=== PATIENT | female | born 1985 | race Caucasian/White ===

== ENCOUNTER 2016-11-27 14:59 | Emergency (ER) | payer MEDICAID ==
[~2016-11-27] VITALS: Ht 170.2 cm; Wt 128.0 kg
[~2016-11-27 14:59] MED LIST: PREN1TAB13 PO
[2016-11-27 15:11] VITALS: Ht 170.2 cm; Wt 128.0 kg
[2016-11-27] MEDS ORDERED: ONDANSETRON (ODT) 4 MG TAB ODT STA (16:35)
--- NOTE | 2016-11-27 16:46 | ERD ---
ER Documentation Chief Complaint Date/Time DATE: 11/27/16 TIME: 16:41 Chief Complaint HUYNH to L posterior basex "months"; radiating to L shoulder/ arm x1day HPI This is a 31-year-old female who presents the emergency department today complaining of a headache for the past 6 months. States she also has some nausea. States that some of the pain goes from her neck into 1 of her arms. States she is also felt dizzy for quite some time. Denies any fevers or chills. States she has not taken medication for the pain because she is breast- feeding and did not want to give the baby something that they could not have. ROS All systems reviewed and are negative except as per history of present illness. Medications Home Meds Active Scripts Ondansetron Hcl* (Zofran*) 4 Mg Tablet, 4 MG PO Q6H for NAUSEA AND/OR VOMITING, #30 TAB Prov:RANDY FLETCHER PA-C 11/27/16 Cyclobenzaprine Hcl* (Cyclobenzaprine Hcl*) 10 Mg Tablet, 10 MG PO QHS, #7 TAB Prov:RANDY FLETCHER PA-C 11/27/16 Acetaminophen* (Tylophen*) 500 Mg Capsule, 1 CAP PO Q6H Y for PAIN AND OR ELEVATED TEMP, #30 CAP Prov:RANYD FLETCHER PA-C 11/27/16 Naproxen* (Naprosyn*) 500 Mg Tablet, 500 MG PO BID Y for PAIN AND/OR INFLAMMATION, #30 TAB Prov:RANDY FLETCHER PA-C 11/27/16 Reported Medications Pnv95/Ferrous Fumarate/FA ( Vitamins Tablet) 1 Each Tablet, 1 EACH PO, TAB 11/15/15 Allergies Allergies: Coded Allergies: No Known Allergy (Unverified , 11/27/16) PMhx/Soc History of Surgery: Yes (Explore Lap (06/2015)) Anesthesia Reaction: No Hx Neurological Disorder: No Hx Respiratory Disorders: No Hx Cardiac Disorders: No Hx Psychiatric Problems: No Hx Miscellaneous Medical Probl: Yes (L Ovarian Cyst ) Hx Alcohol Use: Yes (Social) Hx Substance Use: No Hx Tobacco Use: Yes (Quit prior to ) Physical Exam Vitals Vital Signs Date Time Temp Pulse Resp B/P Pulse Ox O2 Delivery O2 Flow Rate FiO2 11/27/16 15:11 98.4 85 16 117/64 97 Physical Exam Const: obese, NAD Head: Atraumatic Eyes: Normal Conjunctiva. PERRLA, EOM intact ENT: Normal External Ears, Nose and Mouth. Neck: Full range of motion..~ No meningismus. Resp: Clear to auscultation bilaterally Cardio: Regular rate and rhythm, no murmurs Abd: Soft, non tender, non distended. Normal bowel sounds Skin: No petechiae or rashes Back: No midline or flank tenderness Ext: No cyanosis, or edema Neur: Awake and alert. CN 2-12 intact. No gait ataxia Psych: Normal Mood and Affect Result Diagram: 11/27/16 1720 11/27/16 1720 Results 24 hrs Laboratory Tests Test 11/27/16 17:20 11/27/16 17:44 White Blood Count 6.610^3/ul Red Blood Count 4.5210^6/ul Hemoglobin 13.3g/dl Hematocrit 38.2% Mean Corpuscular Volume 84.5fl Mean Corpuscular Hemoglobin 29.4pg Mean Corpuscular Hemoglobin Concent 34.8g/dl Red Cell Distribution Width 12.5% Platelet Count 79415^3/UL Mean Platelet Volume 9.5fl Neutrophils % 57.9% Lymphocytes % 33.2% Monocytes % 5.2% Eosinophils % 2.9% Basophils % 0.5% Nucleated Red Blood Cells % 0.0/100WBC Neutrophils # 3.810^3/ul Lymphocytes # 2.210^3/ul Monocytes # 0.310^3/ul Eosinophils # 0.210^3/ul Basophils # 0.010^3/ul Nucleated Red Blood Cells # 0.010^3/ul Sodium Level 141mmol/L Potassium Level 3.5mmol/L Chloride Level 108mmol/L Carbon Dioxide Level 26mmol/L Anion Gap 11 Blood Urea Nitrogen 14mg/dl Creatinine 0.77mg/dl Glucose Level 111mg/dl Calcium Level 9.3mg/dl Total Bilirubin 0.3mg/dl Direct Bilirubin 0.00mg/dl Indirect Bilirubin 0.3mg/dl Aspartate Amino Transf (AST/SGOT) 72IU/L Alanine Aminotransferase (ALT/SGPT) 139IU/L Alkaline Phosphatase 108IU/L Total Protein 7.4g/dl Albumin 3.8g/dl Globulin 3.60g/dl Albumin/Globulin Ratio 1.05 Bedside Urine pH (LAB) 5.5 Bedside Urine Protein (LAB) Trace Bedside Urine Glucose (UA) Negative Bedside Urine Ketones (LAB) Negative Bedside Urine Blood Negative Bedside Urine Nitrite (LAB) Negative Bedside Urine Leukocyte Esterase (L Negative Current Medications Medications (Trade) Dose Ordered Sig/Cornel Route PRN Reason Start Time Stop Time Status Last Admin Dose Admin Ondansetron HCl (Zofran Odt) 4 mg ONCE STAT ODT 11/27/16 16:35 11/27/16 16:39 DC 11/27/16 16:55 Acetaminophen/ Hydrocodone Bitart ([place] (5/325)) 1 tab ONCE ONCE PO 11/27/16 17:00 11/27/16 17:01 DC 11/27/16 16:55 DIAGNOSTIC IMAGING REPORT Patient: SO BAIRD : 1985 Age: 31 Sex: F MR #: [id number] DOS: 11/27/16 0000 Ordering MD: RANDY FLETCHER PA-C Location: E Room/Bed: PROCEDURE: XR Cervical Spine. CLINICAL INDICATION: Cervical spine pain. TECHNIQUE: AP, lateral and odontoid views of the cervical spine were performed. The images were reviewed on a PACS workstation. COMPARISON: None available FINDINGS: There is diffuse straightening of the cervical spine without reversal of normal cervical lordosis. The vertebral body height and osseous mineralization are normal. There is no evidence of fracture or dislocation. There is no significant facet arthropathy. The uncovertebral joints are unremarkable. The intervertebral disc spaces are well maintained. There are no abnormal calcifications. The prevertebral soft tissues are normal. No radiopaque foreign bodies are identified. IMPRESSION: 1. Diffuse straightening of the cervical spine which may be related to paraspinal muscle spasm versus positioning. 2. Otherwise, normal radiographs of the cervical spine. No significant degenerative disc disease or evidence of fracture. RPTAT: HGAS .Angel Green MD, MD Date Time Electronically viewed and signed by .Angel Green MD, MD on 11/27/2016 17: 28 .S/ CC: RNADY FLETCHER PA-C DIAGNOSTIC IMAGING REPORT Patient: SO BAIRD : 1985 Age: 31 Sex: F MR #: [id number] DOS: 11/27/16 0000 Ordering MD: RANDY FLETCHER PA-C Location: FTE Room/Bed: PROCEDURE: CT Brain without. CLINICAL INDICATION: Headache. TECHNIQUE: A CT of the brain was performed on multidetector high-resolution CT scanner utilizing axial sections from the skull base through the vertex without contrast. The scan was reviewed in soft tissue brain and high frequency resolution bone algorithm windows. Images were reviewed on a high- resolution PACS workstation. One or more the following does reduction techniques were utilized: Automated exposure control, adjustment of the mA/ or kV according to patient's size, or use of iterative reconstruction technique. The exam CTDI = 42.6 mGy and the DLP = seen 720.23 mGy-cm. COMPARISON: None available. FINDINGS: The ventricles and sulci are age-appropriate. There is no intracranial hemorrhage, mass effect or midline shift. No abnormal intra-axial or extra- axial fluid collections are seen. The mcgrath/white matter differentiation is preserved. No acute skull abnormality is noted. The visualized paranasal sinuses are essentially clear. IMPRESSION: 1. No acute intracranial hemorrhage, transcortical infarction or mass effect. RPTAT: HFN .Uday Ellison MD, MD Date Time Electronically viewed and signed by .Uday Ellison MD, MD on 11/27/2016 17: 35 .N/ CC: RANDY FLETCHER PA-C Procedures/MDM This is a 31-year-old female who presents the emergency department today with multiple complaints including dizziness, nausea, headache for the past 6 months. Given patient's complaints did obtain laboratory workup as well as imaging. Laboratory workup elevated white blood cell count. She is not anemic. Platelets are within normal limits. Electrolytes are within normal limits. Glucose is within normal limits. Liver enzymes are mildly elevated. UA is negative for infection test is negative Head CT noncontrast shows no acute intracrainal hemorrhage, transcortical infarction or mass effect Cervical Spine images diffuse straightening of the cervical spine which may be related to paraspinal muscle spasm versus positioning. There is no evidence of fracture dislocation. There is no significant facet arthropathy paravertebral soft tissues are normal. There is no significant degenerative disc disease or evidence of fracture. EKG read and interpreted by Dr. Edwards rate [address] elevation. No QT prolongation. Normal sinus rhythm. Low suspicion for acute KS, PE, pericarditis Headache and dizziness of uncertain etiology however her headache appears to be in the posterior aspect of her head and goes into her neck and appears to be musculoskeletal in relation similar to tension type headache. Low suspicion for migraine. Low suspicion for hypertensive emergency or urgency. Patient was given Pine Apple here in the emergency department and pain improved. She will be given a prescription for tylenol and naprosyn, Zofran for home. She was also given a prescription for Flexeril. I did explain to the patient that this is not safe medication and breast-feeding. Patient understood. At this time the patient is stable for discharge and outpatient management. Patient should follow up with their PCP in the next 1-2 days. Was given a list of resources. They may return to the emergency department sooner for any persistent or worsening of symptoms. Patient understood and agreed with the plan. Departure Diagnosis: Primary Impression: Multiple complaints Condition: RANDY Ricci PA-C Nov 27, 2016 16:46
[2016-11-27] MEDS ORDERED: HYDROCODONE/APAP (5/325) TAB PO ONE (17:00)
[2016-11-27 17:27] LABS: BASOPHILS % 0.5 % (0.0-2.0); EOSINOPHILS # 0.2 10^3/ul (0.0-0.5); EOSINOPHILS % 2.9 % (0.0-7.0); HEMATOCRIT 38.2 % (37.0-47.0); HEMOGLOBIN 13.3 g/dl (12.0-16.0); LYMPHOCYTES # 2.2 10^3/ul (0.8-2.9); LYMPHOCYTES % 33.2 % (15.0-51.0); MEAN CORPUSCULAR HEMOGLOBIN 29.4 pg (29.0-33.0); MEAN CORPUSCULAR HGB CONC 34.8 g/dl (32.0-37.0); MEAN CORPUSCULAR VOLUME 84.5 fl (82.0-101.0); MEAN PLATELET VOLUME 9.5 fl (7.4-10.4); MONOCYTE # 0.3 10^3/ul (0.3-0.9); MONOCYTES % 5.2 % (0.0-11.0); NEUTROPHIL # 3.8 10^3/ul (1.6-7.5); NEUTROPHILS % 57.9 % (39.0-77.0); PLATELET COUNT 242 10^3/UL (140-415); RED BLOOD COUNT 4.52 10^6/ul (4.20-5.40); RED CELL DISTRIBUTION WIDTH 12.5 % (11.5-14.5); WHITE BLOOD COUNT 6.6 10^3/ul (4.8-10.8)
--- NOTE | 2016-11-27 17:28 | RADRPT ---
PROCEDURE: XR Cervical Spine. CLINICAL INDICATION: Cervical spine pain. TECHNIQUE: AP, lateral and odontoid views of the cervical spine were performed. The images were re viewed on a PACS workstation. COMPARISON: None available FINDINGS: There is diffuse straightening of the cervical spine without reversal of normal cervical lordosis. The vertebral body height and osseous mineralization are normal. There is no evidence of fracture or dislocation. There is no significant facet arthropathy. The uncovertebral joints are unremarkable. The intervertebral disc spaces are well maintained. There are no abnormal calcifications. The prever tebral soft tissues are normal. No radiopaque foreign bodies are identified. IMPRESSION: 1. Diffuse straightening of the cervical spine which may be related to paraspinal muscle spasm vers us positioning. 2. Otherwise, normal radiographs of the cervical spine. No significant degenerative disc disease o r evidence of fracture. RPTAT: HGAS .Angel Green MD, Date Time Electronically viewed and signed by .Angel Green MD, on 11/27/2016 17:28 .S/
--- NOTE | 2016-11-27 17:35 | RADRPT ---
PROCEDURE: CT Brain without. CLINICAL INDICATION: Headache. TECHNIQUE: A CT of the brain was performed on multidetector high-resolution CT scanner utilizing a xial sections from the skull base through the vertex without contrast. The scan was reviewed in sof t tissue brain and high frequency resolution bone algorithm windows. Images were reviewed on a high -resolution PACS workstation. One or more the following does reduction techniques were utilized: Aut omated exposure control, adjustment of the mA/ or kV according to patient's size, or use of iterativ e reconstruction technique. The exam CTDI = 42.6 mGy and the DLP = seen 720.23 mGy-cm. COMPARISON: None available. FINDINGS: The ventricles and sulci are age-appropriate. There is no intracranial hemorrhage, mass effect or mi dline shift. No abnormal intra-axial or extra-axial fluid collections are seen. The mcgrath/white divya er differentiation is preserved. No acute skull abnormality is noted. The visualized paranasal sinus es are essentially clear. IMPRESSION: 1. No acute intracranial hemorrhage, transcortical infarction or mass effect. RPTAT: HFN .Uday Ellison MD, MD Date Time Electronically viewed and signed by .Uday Ellison MD, MD on 11/27/2016 17:35 .N/
[2016-11-27 17:36] LABS: URINE BLOOD (Dip) POC Negative (NEGATIVE)
[2016-11-27 17:50] LABS: ALBUMIN 3.8 g/dl (3.3-4.9); ALBUMIN/GLOBULIN RATIO 1.05; BILIRUBIN,INDIRECT 0.3 mg/dl (0-1.1); BILIRUBIN,TOTAL 0.3 mg/dl (0.2-1.3); CALCIUM 9.3 mg/dl (8.4-10.2); CREATININE 0.77 mg/dl (0.44-1.00); POTASSIUM 3.5 mmol/L (3.5-5.1); TOTAL PROTEIN 7.4 g/dl (6.1-8.1)
[2016-11-27] MEDS ORDERED: ACET500C5 PO (18:20)
[2016-11-27] MEDS ORDERED: CYCL-319 PO (18:20)
[2016-11-27] MEDS ORDERED: NAPR-260 PO (18:20)
[2016-11-27] MEDS ORDERED: ONDA4TAB8 PO (18:21)
== END 2016-11-27 18:29 | disposition home or self-care (01) ==
LOC: FTE 14:59
DX: R51 Headache (principal); R11.0 Nausea; M54.2 Cervicalgia; R42 Dizziness and giddiness; Z87.891 Personal history of nicotine dependence
CPT/HCPCS: 70450; 72040; 80053; 81003; 85025; 93005; Z7502; Z7610

== ENCOUNTER 2017-10-15 03:20 | Emergency (ER) | END 2017-10-15 05:47 | disposition home or self-care (01) ==